=== PATIENT | female | born 1995 ===

== ENCOUNTER 2019-05-26 20:51 | Emergency (ER) | payer BC ==
[2019-05-26] MEDS ORDERED: Pantoprazole 40 MG Vial IVPUSH ONE (21:19)
[2019-05-26] MEDS ORDERED: metroNIDAZOLE/Normal Saline 500 MG in Premix Bag 1 BAG IV ONE (21:19)
[2019-05-26] MEDS ORDERED: cefTRIAXone 1 GM in Sodium Chloride 0.9% 100 ML IV ONE (21:19)
[2019-05-26] MEDS ORDERED: Lactated Ringers 1,000 ML IV ONE (21:19)
[2019-05-26] MEDS ORDERED: Famotidine 20 MG/2 ML SDV IVPUSH ONE (21:19)
[2019-05-26] MEDS ORDERED: Ondansetron 4 MG/2 ML SDV IVPUSH ONE (21:19)
--- NOTE | 2019-05-26 21:19 | EDM.PDOC ---
ED HPI GENERAL MEDICAL PROBLEM - General Chief Complaint: Abdominal Pain Stated Complaint: lower abdominal pain, constipation Time Seen by Provider: 05/26/19 21:00 Source of Information: Reports: Patient. Denies: Old Records (No [facility] records available) History Limitations: Reports: No Limitations - History of Present Illness INITIAL COMMENTS - FREE TEXT/NARRATIVE: The patient was brought to the emergency room via private automobile by her boyfriend for evaluation of 12/04 right lower quadrant abdominal pain with symptoms starting at about 5 AM on . Note that she has had progressive anorexia since that time and has not had a bowel movement for about 2-3 days. She was somewhat nauseous yesterday but is not nauseous at this time. Last solid intake was yesterday evening with patient drinking water majority of the day with last fluids at about 16:00 hours. She did take 1000 mg of Tylenol at 13 :00 hours with no significant improvement in her symptoms. Her LMP was 2 weeks ago and was normal at that time. She has not had previous problems with mittelschmerz. No recent history of other abdominal pain, heartburn, emesis, diarrhea, melena, gross hematochezia, or any food intolerance, including fatty foods, etc.. She denies any gross hematuria, colic, or other UTI symptoms. The patient also denies any recent fever, cough, wheezing, dyspnea, etc.. She has not received her influenza booster this season. Onset: Gradual Onset Date: 05/25/19 Onset Time: 05:00 Duration: Constant, Getting Worse Location: Reports: Abdomen. Denies: Head, Face, Neck, Chest, Back, Pelvis, Radiates to Quality: Reports: Sharp, Stabbing Severity: Severe Improves with: Reports: None Worsens with: Reports: None Context: Reports: Other (As above). Denies: Sick Contact, Trauma Associated Symptoms: Reports: Loss of Appetite, Nausea/Vomiting (As above). 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 [No Known Home Meds] 05/26/19 [History] Past Medical History HEENT History: Reports: None Cardiovascular History: Reports: None. Denies: Arrhythmia, Hypertension Respiratory History: Reports: None, Intubation, Previous. 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 Denies: Arthritis, Fracture Neurological History: Reports: None Psychiatric History: Reports: None Endocrine/Metabolic History: Reports: None Hematologic History: Reports: None Oncologic (Cancer) History: Reports: None Dermatologic History: Reports: None - Past Surgical History GI Surgical History: Reports: None. Denies: Appendectomy, Cholecystectomy Female Surgical History: Reports: D&C, Other (See Below) Other Female Surgeries/Procedures: D&C secondary to SAB in 2017. Social & Family History - Tobacco Use Smoking Status *Q: Never Smoker Tobacco Use Within Last Twelve Months: No Used Tobacco, but Quit: No Smoking Cessation Information Provided To Patient: No Second Hand Smoke Exposure: No Second Hand Smoke Education Provided: No - Living Situation & Occupation Occupation: Employed ([employer] Teacher) ED ROS GENERAL - Review of Systems Review Of Systems: Comprehensive ROS is negative, except as noted in HPI. ED EXAM, GI/ABD - Physical Exam Exam: See Below Exam Limited By: No Limitations General Appearance: Alert, WD/WN, No Apparent Distress Eyes: Bilateral: Normal Appearance (No Nystagmus), EOMI (PERRLA) Ears: Normal External Exam, Normal Canal, Hearing Grossly Normal, Normal TMs Nose: Normal Inspection, Normal Mucosa, No Blood Throat/Mouth: Normal Inspection, Normal Lips, Normal Teeth, Normal Gums, Normal Oropharynx, Normal Voice, No Airway Compromise. No: Dysphagia, Perioral Cyanosis Head: Atraumatic, Normocephalic. No: Facial Tenderness, Sinus Tenderness Neck: Normal Inspection, Supple, Non-Tender, Full Range of Motion. No: Lymphadenopathy (L), Lymphadenopathy (R), Thyromegaly Respiratory/Chest: No Respiratory Distress, Lungs Clear, Normal Breath Sounds, No Accessory Muscle Use, Chest Non-Tender. No: Pleural Rub, Retractions Cardiovascular: Normal Peripheral Pulses, Regular Rate, Rhythm, No Edema, No Gallop, No JVD, No Murmur, No Rub. No: Gallop/S3, Gallop/S4, Friction Rub GI/Abdominal Exam: Normal Bowel Sounds, No Organomegaly, No Distention, No Abnormal Bruit, No Mass, Pelvis Stable, Rebound (Mild diffuse), Tender ( Moderate right lower quadrant). No: Guarding, Rigid (Female) Exam: Deferred Rectal (Female) Exam: Deferred Back Exam: Normal Inspection, Full Range of Motion. No: CVA Tenderness (L), CVA Tenderness (R) Extremities: Normal Inspection, Normal Range of Motion, Non-Tender, No Pedal Edema, Normal Capillary Refill. No: Casa's Sign Neurological: Alert, Oriented, CN II-XII Intact, Normal Cognition, Normal Gait, Normal Reflexes, No Motor/Sensory Deficits Psychiatric: Normal Affect, Normal Mood Skin Exam: Warm, Dry, Intact, Normal Color, No Rash, Stud(s) (Left nasal), Tattoo(s) (Multiple). No: Diaphoretic, Ecchymosis, Jaundice, Pallor, Petechiae , Wound/Incision Lymphatic: No Adenopathy Course - Vital Signs Last Recorded V/S: Last Vital Signs Temp 36.7 C 05/26/19 20:53 Pulse 85 05/26/19 23:41 Resp 14 05/26/19 23:41 BP 107/62 05/26/19 23:41 Pulse Ox 98 05/26/19 23:41 Vital Signs - 24 hr 05/26/19 05/26/19 05/26/19 20:53 21:36 22:30 Temperature [ 36.7 C Temporal] Pulse, 104 H 85 91 Peripheral [ Pulse Oximetry] Respiratory 14 12 12 Rate Blood Pressure 127/64 98/54 L 93/60 [Right Upper Arm] O2 Sat by Pulse 100 100 100 Oximetry 05/26/19 05/26/19 23:00 23:41 Temperature [ Temporal] Pulse, 85 85 Peripheral [ Pulse Oximetry] Respiratory 12 14 Rate Blood Pressure 95/64 107/62 [Right Upper Arm] O2 Sat by Pulse 98 98 Oximetry - Orders/Labs/Meds Orders: Active Orders 24 hr Category Date Time Status Communication Order [RC] ROUTINE Care 05/26/19 23:15 Active Peripheral IV Care [RC] . DIRECTED Care 05/26/19 21:20 Active Nothing Per Oral Diet [DIET] Diet 05/26/19 Breakfast Active Abdomen Pelvis w Cont [CT] Stat Exams 05/26/19 21:19 Taken CULTURE URINE [RM] Stat Lab 05/26/19 21:19 Ordered UA W/MICROSCOPIC [URIN] Stat Lab 05/26/19 21:19 Ordered Sodium Chloride 0.9% [Saline Flush] Med 05/26/19 21:19 Active 10 ml FLUSH ASDIRECTED PRN Obtain Past Medical Record [OM.PC] Urgent Oth 05/26/19 21:19 Active Peripheral IV Insertion Adult [OM.PC] Stat Oth 05/26/19 21:19 Ordered Resuscitation Status Stat Resus Stat 05/26/19 21:19 Ordered Medication Orders Sodium Chloride (Saline Flush) 10 ml FLUSH ASDIRECTED PRN PRN Reason: Keep Vein Open Last Admin: 05/26/19 21:57 Dose: 10 ml Admin: 05/26/19 21:54 Dose: 10 ml Labs: Laboratory Tests 05/26/19 05/26/19 05/26/19 Range/Units 21:40 21:40 21:40 WBC 11.0 H (4.0-10.2) K/uL RBC 5.08 (3.77-5.09) M/uL Hgb 14.5 (11.7-15.5) g/dL Hct 41.7 (34.0-46.0) % MCV 82.1 L (84.0-98.0) fL MCH 28.5 (28.2-33.3) pg MCHC 34.8 (31.7-36.0) g/dL RDW 13.3 (11.2-14.1) % Plt Count 281 (150-350) K/uL Neut % (Auto) 62.8 (45.0-80.0) % Lymph % (Auto) 27.7 (10.0-50.0) % [place] % (Auto) 7.3 (2.0-14.0) % Eos % (Auto) 2.1 (0.0-5.0) % Baso % (Auto) 0.1 (0.0-2.0) % Neut # (Auto) 6.92 (1.40-7.00) K/uL Lymph # (Auto) 3.05 (0.50-3.50) K/uL [place] # (Auto) 0.80 (0.00-1.00) K/uL Eos # (Auto) 0.23 (0.00-0.50) K/uL Baso # (Auto) 0.01 (0.00-0.20) K/uL PT 10.5 (9.5-12.0) SEC INR 1.0 APTT 25.7 (21.0-31.3) SEC Sodium (136-145) mmol/L Potassium (3.5-5.1) mmol/L Chloride (98-107) mmol/L Carbon Dioxide (21.0-32.0) mmol/L BUN (7-18) mg/dL Creatinine (0.51-1.17) mg/dL Est Cr Clr Drug Dosing Estimated GFR (MDRD) mL/min Glucose (74-106) mg/dL Lactic Acid (0.4-2.0) mmol/L Uric Acid (2.6-7.2) mg/dL Calcium (8.5-10.1) mg/dL Magnesium (1.8-2.4) mg/dL Total Bilirubin (0.2-1.0) mg/dL AST (15-37) U/L ALT (12-78) U/L Alkaline Phosphatase (46-116) IU/L Total Protein (6.4-8.2) g/dL Albumin (3.4-5.0) g/dL Amylase 41 (25-115) U/L Lipase (73-393) U/L HCG, Qual (NEGATIVE) 05/26/19 05/26/19 05/26/19 Range/Units 21:40 21:40 21:40 WBC (4.0-10.2) K/uL RBC (3.77-5.09) M/uL Hgb (11.7-15.5) g/dL Hct (34.0-46.0) % MCV (84.0-98.0) fL MCH (28.2-33.3) pg MCHC (31.7-36.0) g/dL RDW (11.2-14.1) % Plt Count (150-350) K/uL Neut % (Auto) (45.0-80.0) % Lymph % (Auto) (10.0-50.0) % [place] % (Auto) (2.0-14.0) % Eos % (Auto) (0.0-5.0) % Baso % (Auto) (0.0-2.0) % Neut # (Auto) (1.40-7.00) K/uL Lymph # (Auto) (0.50-3.50) K/uL [place] # (Auto) (0.00-1.00) K/uL Eos # (Auto) (0.00-0.50) K/uL Baso # (Auto) (0.00-0.20) K/uL PT (9.5-12.0) SEC INR APTT (21.0-31.3) SEC Sodium 137 (136-145) mmol/L Potassium 3.5 (3.5-5.1) mmol/L Chloride 102 (98-107) mmol/L Carbon Dioxide 23.4 (21.0-32.0) mmol/L BUN 12 (7-18) mg/dL Creatinine 0.59 (0.51-1.17) mg/dL Est Cr Clr Drug Dosing TNP Estimated GFR (MDRD) > 60 mL/min Glucose 85 (74-106) mg/dL Lactic Acid 1.0 (0.4-2.0) mmol/L Uric Acid 4.6 (2.6-7.2) mg/dL Calcium 9.3 (8.5-10.1) mg/dL Magnesium 1.8 (1.8-2.4) mg/dL Total Bilirubin 0.5 (0.2-1.0) mg/dL AST 18 (15-37) U/L ALT 30 (12-78) U/L Alkaline Phosphatase 83 (46-116) IU/L Total Protein 7.7 (6.4-8.2) g/dL Albumin 4.3 (3.4-5.0) g/dL Amylase (25-115) U/L Lipase 69 L (73-393) U/L HCG, Qual Negative (NEGATIVE) Urine specimen could not be collected. Meds: Medications Generic Name Dose Route Start Last Admin Trade Name Freq PRN Reason Stop Dose Admin Sodium Chloride 10 ml 05/26/19 21:19 05/26/19 21:57 Saline Flush FLUSH 10 ml ASDIRECTED PRN Administration Keep Vein Open Discontinued Medications Generic Name Dose Route Start Last Admin Trade Name Freq PRN Reason Stop Dose Admin Famotidine 40 mg 05/26/19 21:19 05/26/19 21:53 Pepcid IVPUSH 05/26/19 21:20 40 mg ONETIME ONE Administration Ceftriaxone Sodium 1 gm/ 100 mls @ 200 mls/hr 05/26/19 21:19 05/26/19 21:53 Sodium Chloride IV 05/26/19 21:48 200 mls/hr ONETIME ONE Administration Lactated Ringer's 1,000 mls @ 999 mls/hr 05/26/19 21:19 Ringers, Lactated IV 05/26/19 22:19 .BOLUS ONE Metronidazole 500 mg/ Premix 100 mls @ 100 mls/hr 05/26/19 21:19 05/26/19 22: 44 IV 05/26/19 22:18 100 mls/hr ONETIME ONE Administration Iopamidol 100 ml 05/26/19 21:34 05/26/19 22:43 Isovue-300 (61%) IVPUSH 05/26/19 21:35 100 ml ONETIME ONE Administration Ondansetron HCl 4 mg 05/26/19 21:19 05/26/19 21:53 Zofran IVPUSH 05/26/19 21:20 4 mg ONETIME ONE Administration Pantoprazole Sodium 40 mg 05/26/19 21:19 05/26/19 21:53 Protonix Iv IVPUSH 05/26/19 21:20 40 mg ONETIME ONE Administration - Radiology Interpretation Free Text/Narrative:: Telephone consultation at 23:05 hours with the radiology department at [facility] with preliminary verbal report of CT scan of the abdomen with contrast. Positive findings for appendicitis without perforation, abscess, etc. CT Results Date: 05/27/19 CT Results Time: 23:05 Departure - Departure Time of Disposition: 23:50 Disposition: DC/Tfer to Acute Hospital 02 Condition: Good Clinical Impression: Appendicitis Qualifiers: Appendicitis type: acute appendicitis Acute appendicitis type: with localized peritonitis Appendicitis gangrene presence: without gangrene Appendicitis perforation presence: without perforation Appendicitis abscess presence: without abscess Qualified Code(s): K35.30 - Acute appendicitis with localized peritonitis, without perforation or gangrene - Discharge Information *PRESCRIPTION DRUG MONITORING PROGRAM REVIEWED*: Not Applicable *COPY OF PRESCRIPTION DRUG MONITORING REPORT IN PATIENT ZEV: Not Applicable Instructions: Appendicitis, Adult Forms: ED Department Discharge, Interfacility Transfer EMTALA Additional Instructions: 1. STRICT nothing to eat or drink until otherwise directed by accepting providers 2. Your boyfriend should drive you to [facility] for direct admission and probable surgery. Sepsis Event Note - Evaluation Sepsis Screening Result: No Definite Risk - Focused Exam Vital Signs: Vital Signs Temp Pulse Resp BP Pulse Ox 05/26/19 23:41 85 14 107/62 98 05/26/19 23:00 85 12 95/64 98 05/26/19 22:30 91 12 93/60 100 05/26/19 21:36 85 12 98/54 L 100 05/26/19 20:53 36.7 C 104 H 14 127/64 100 Date Exam was Performed: 05/27/19 Time Exam was Performed: 00:15 - Problem List & Annotations (1) Appendicitis SNOMED Code(s): 16599805 Code(s): K37 - UNSPECIFIED APPENDICITIS Status: Acute Priority: High Onset Date: ~05/26/19 Annotation/Comment:: Telephone consultation at 23:[address] Jaimes, general surgeon at [facility], who does accept the patient for direct admission and surgery, with no further treatment recommendations given. She is aware that the patient will be driven by her boyfriend by private vehicle secondary to lack of ambulance availability. Strict nothing by mouth as per discharge instructions. She was also advised to obtain an influenza booster. Qualifiers: Appendicitis type: acute appendicitis Acute appendicitis type: with localized peritonitis Appendicitis gangrene presence: without gangrene Appendicitis perforation presence: without perforation Appendicitis abscess presence: without abscess Qualified Code(s): K35.30 - Acute appendicitis with localized peritonitis, without perforation or gangrene - Problem List Review Problem List Initiated/Reviewed/Updated: Yes - My Orders Last 24 Hours: My Active Orders 05/26/19 21:19 Abdomen Pelvis w Cont [CT] Stat CULTURE URINE [RM] Stat UA W/MICROSCOPIC [URIN] Stat Sodium Chloride 0.9% [Saline Flush] 10 ml FLUSH ASDIRECTED PRN Obtain Past Medical Record [OM.PC] Urgent Peripheral IV Insertion Adult [OM.PC] Stat Resuscitation Status Stat 05/26/19 21:20 Peripheral IV Care [RC] . DIRECTED 05/26/19 23:15 Communication Order [RC] ROUTINE 05/26/19 Breakfast Nothing Per Oral Diet [DIET] - Assessment/Plan Last 24 Hours: My Active Orders 05/26/19 21:19 Abdomen Pelvis w Cont [CT] Stat CULTURE URINE [RM] Stat UA W/MICROSCOPIC [URIN] Stat Sodium Chloride 0.9% [Saline Flush] 10 ml FLUSH ASDIRECTED PRN Obtain Past Medical Record [OM.PC] Urgent Peripheral IV Insertion Adult [OM.PC] Stat Resuscitation Status Stat 05/26/19 21:20 Peripheral IV Care [RC] . DIRECTED 05/26/19 23:15 Communication Order [RC] ROUTINE 05/26/19 Breakfast Nothing Per Oral Diet [DIET] Assessment:: As above Plan: As above. Extensive precautions were given to the patient and her boyfriend, who are in agreement with the treatment plan. See Patient Instructions for further treatment and plan.
[2019-05-26] MEDS ORDERED: Iopamidol 612 MG/ML 100 ML Bottle IVPUSH ONE (21:34)
[2019-05-26] MEDS: Sodium Chloride 0.9% 10 ML Syringe FLUSH PRN ×2 (21:54→21:57)
[2019-05-26 22:09] LABS: CHLORIDE,CL 102 mmol/L (98-107); SODIUM,NA 137 mmol/L (136-145)
[2019-05-26 22:26] LABS: PTT,PARTIAL THROMBOPLSTIN TIME 25.7 SEC (21.0-31.3)
[2019-05-26 23:37] VITALS: PULSE 85
[2019-05-26 23:41] VITALS: BP 107/62
== END 2019-05-26 23:50 ==
LOC: LL.ED 20:51
DX: K35.30 Acute appendicitis with localized peritonitis, without perforation or gangrene (principal)
CPT/HCPCS: 36415; 74177; 80053; 82150; 83605; 83690; 83735; 84550; 84703; 85025; 85610; 85730; 96365; 96367; 96375; 99285; C9113; J0696; J2405; J3490; J7050; Q9967